=== PATIENT | male | born 2000 | race Caucasian/White ===

== ENCOUNTER 2023-06-24 11:42 | Outpatient (REF) | payer OTHER, SELFPAY ==
--- NOTE | ~2023-06-24 | MR_ITS ---
EXAMINATION: MR SHOULDER WITHOUT CONTRAST, RIGHT CLINICAL INFORMATION: Hockey game injury 2 weeks ago, right shoulder injury, decreased range of motion, pain COMPARISON: None available. TECHNIQUE: MRI of the shoulder without contrast was performed on a high-field scanner. FINDINGS: ROTATOR CUFF: The right supraspinatus tendon is intact without focal lesion. The infraspinatus tendon is intact. LABRUM: The glenoid labrum shows extensive tear from 7-1 o'clock with posterior to anterior propagation. Anterior superior subcoracoid labral cyst is seen, measuring 1.3 cm in AP diameter, 0.6 cm in width, 0.7 cm in vertical height. TENDONS: The biceps anchor and extraarticular portion of the biceps tendon are intact. The subscapularis muscle and tendon attachment are normal. ACROMIOCLAVICULAR JOINT: The acromioclavicular joint is unremarkable. BONES: The acromion process shows arc shaped symmetric downward curving anterior end that could cause impingement. No focal bone lesions with abnormal signal can be seen. CARTILAGE: Articular cartilage of the humeral head and glenoid fossa are intact. There is mild right glenohumeral joint effusion. MR/MR shoulder RT wo con IMPRESSION: 1. No rotator cuff tendon tear is seen. 2. Extensive 7-1 o'clock right glenoid labrum tear with posterior to anterior propagation (Daxa type II SLAP lesion) is seen with anterior superior labral cyst. 3. Type II right acromion process morphology.
== END 2023-06-24 11:43 | disposition home or self-care (01) ==
LOC: HO.MRI 11:42
PROVIDERS: Visit Provider Family Medicine
DX: M25.511 Pain in right shoulder (principal)
CPT/HCPCS: 73221